=== PATIENT | male | born 1950 | race American Indian/Alaskan Native ===

== ENCOUNTER 2018-01-11 17:36 | Emergency (ER) | payer OTHER ==
[2018-01-11 18:02] VITALS: BP 151/95
--- NOTE | 2018-01-11 18:45 | XRAY Report ---
EXAM: LEFT ANKLE RADIOGRAPHY EXAM DATE: 01/11/2018 06:33 PM. CLINICAL HISTORY: Trauma. COMPARISON: None. TECHNIQUE: 3 views. FINDINGS: Bones: Normal. No fractures or bone lesions. Joints: Normal. No effusion. No subluxations. The ankle mortise is normally aligned. Soft Tissues: There is a moderate-sized plantar calcaneal spur. IMPRESSION: Negative for fracture and subluxation. [facility] Referring Provider Line: [phone] SITE ID: [id number]
--- NOTE | 2018-01-11 18:45 | XRAY Preliminary Report ---
Exam: XR ANKLE 3 VIEW LT IMPRESSION: Negative for fracture and subluxation. [facility] SITE ID: [id number]
--- NOTE | 2018-01-11 18:49 | ED Physician Documentation ---
PD HPI LOWER EXT INJURY - Stated complaint Stated Complaint: L ANKLE INJ - Chief complaint Chief Complaint: Ext Problem - History obtained from History obtained from: Patient - History of Present Illness PD HPI LOW EXT INJURY LOCATION: Left, Ankle Type of injury: Twist Where injury occurred: Home Timing - onset: How many hours ago (1) Worsened by: Moving, Palpating, Other (Weightbearing.) Associated symptoms: Swelling Similar symptoms before: Has not had sx before - Additional information Additional information: The patient is a 67-year-old male who slipped off the tailgate of a pickup twisting his left ankle about one hour prior to arrival. He complains of pain at the lateral aspect of his ankle, especially with weightbearing. He denies any other injuries. Review of Systems Cardiac: denies: Chest pain / pressure Respiratory: denies: Dyspnea GI: denies: Nausea, Vomiting Musculoskeletal: reports: Joint pain (left ankle) Neurologic: denies: Focal weakness, Numbness PD PAST MEDICAL HISTORY - Past Medical History Past Medical History: No Cardiovascular: Hypertension Respiratory: None Neuro: None Endocrine/Autoimmune: None GI: None : None HEENT: None Psych: None Musculoskeletal: None Derm: None - Past Surgical History Past Surgical History: No - Present Medications Home Medications: Ambulatory Orders Medication Instructions Recorded Confirmed No Known Home Medications [No 01/11/18 01/11/18 Known Home Medications] - Allergies Allergies/Adverse Reactions: Allergies Allergy/AdvReac Type Severity Reaction Status Date / Time No Known Drug Allergies Allergy Verified 01/11/18 18:02 - Social History Does the pt smoke?: No Smoking Status: Never smoker Does the pt drink ETOH?: No Does the pt have substance abuse?: No - Immunizations Immunizations are current?: Yes Immunizations: TDAP current <10years - POLST Patient has POLST: No PD ED PE NORMAL - Vitals Vital signs reviewed: Yes (Initially hypertensive.) - HEENT HEENT: Atraumatic - Respiratory Respiratory: No respiratory distress - Derm Derm: No rash - Extremities Extremities: No edema, No calf tenderness / cord, Other (There is soft tissue swelling and mild ecchymosis at the anterior aspect of the left lateral malleolus, with associated tenderness to palpation. There is no tenderness to palpation at the fifth metatarsal base, the medial malleolus, or the proximal fibula. Distal neurovascular is intact.) - Neuro Neuro: Alert and oriented X 3, No motor deficit, No sensory deficit Results - Vitals Vitals: Oxygen O2 Source Room air - Rads (name of study) ankle xray Radiology: Prelim report reviewed, EMP read contemporaneously, See rad report ( Negative for fracture or subluxation.) Procedures - Splint (location) left ankle Splint applied by: Tech Type of splint: Ankle airsplint Other: Patient tolerated well, No complications, Neurovascular intact, Crutches provided PD MEDICAL DECISION MAKING - ED course Complexity details: reviewed results, re-evaluated patient, considered differential, d/w patient, d/w family ED course: The patient's presentation is consistent with left ankle sprain. X-ray reveals no evidence of fracture or dislocation. Treatment in the emergency department included application of an ankle air splint. Crutches were dispensed. Ibuprofen 800 mg is administered orally. I discussed with the patient and his family the expected course of injury, symptomatic treatment and outpatient follow-up, as well as potentially worrisome signs or symptoms that should prompt reevaluation in the emergency department. Departure - Departure Disposition: 01 Home, Self Care Clinical Impression: Ankle sprain Qualifiers: Encounter type: initial encounter Involved ligament of ankle: anterior talofibular ligament Laterality: left Qualified Code(s): S93.492A - Sprain of other ligament of left ankle, initial encounter Condition: Stable Instructions: ED Sprain Ankle W X Ray Follow-Up: KATLIN Fitzgerald [Provider Group] Comments: Keep your left foot elevated as much of the time as possible. Apply ice pack intermittently for the next 3 days. Use the ankle air splint and crutches when ambulating. You can use ibuprofen or Aleve as needed for the anti-inflammatory effect. Follow up with your primary physician within 1-2 weeks. Call to schedule an appointment. Return to the emergency department if you develop markedly increasing swelling or pain, or otherwise worsening symptoms. Forms: Activity restrictions Discharge Date/Time: 01/11/18 19:07
[2018-01-11] MEDS ORDERED: IBUPROFEN 800 MG TABLET PO STA (18:55)
== END 2018-01-11 19:07 | disposition home or self-care (01) ==
LOC: ED 17:36
DX: S93.492A Sprain of other ligament of left ankle, initial encounter (principal); V58.4XXA Person boarding or alighting a pick-up truck or van injured in noncollision transport accident, initial encounter; Y93.E6 Activity, residential relocation; Y92.007 Garden or yard of unspecified non-institutional (private) residence as the place of occurrence of the external cause; X50.9XXA Other and unspecified overexertion or strenuous movements or postures, initial encounter; I10 Essential (primary) hypertension
CPT/HCPCS: 73610; 99283; A9270

== ENCOUNTER 2018-08-29 14:35 | Outpatient (CLI) | payer OTHER, MEDICARE ==
--- NOTE | 2018-08-30 13:56 | MRI Report ---
Reason: LUMBAR RADICULOPATHY Procedure Date: 08/29/2018 Accession Number: [id number] / [id number] Procedure: MRI - Lumbar Spine W/O CPT Code: FULL RESULT: EXAM: MRI LUMBAR SPINE WITHOUT CONTRAST EXAM DATE: 08/29/2018 03:16 PM. CLINICAL HISTORY: Lumbar radiculopathy. COMPARISON: None. TECHNIQUE: Multiplanar, multisequence T1-weighted and fluid-sensitive sequences of the lumbar spine from T12 to S1 without contrast. Other: None. FINDINGS: No suspicious marrow replacement is seen in the lumbar vertebral bodies. The distal tip of the conus medullaris is seen at the level of the L2 vertebral body. Minimal loss of vertebral body height along the super endplate of T12 from a degenerative Schmorl's node is noted. T11-T12: A minimal posterior disk protrusion is seen. T12 through L2: No posterior disk protrusion. L2-L3: A minimal posterior disk protrusion is seen. L3 through L5: No posterior disk protrusion. L5-S1: A mild posterior disk protrusion is seen. This is slightly greater towards the right. Facet/ligamentum flavum hypertrophy is seen in the lower lumbar spine. This is mild. IMPRESSION: 1. Minimal degenerative disk disease is seen at T11-T12 and L2-L3. Mild degenerative disk disease is seen at L5-S1. 2. No central canal or foraminal stenosis. Comment: The following findings are so common in adults without low back pain that while we report their presence, they must be interpreted with caution and in the context of the clinical situation. (Reference Chelseavik et al, Spine 2001) Prevalence of findings in patients without low back pain: Disk degeneration (any evidence): 92% Disk desiccation/T2 signal loss: 83% Disk height loss: 56% Disk bulge: 64% Disk protrusion: 32% Annular tear/high intensity zone: 38% [facility]
== END 2018-08-29 14:36 | disposition home or self-care (01) ==
LOC: DI 14:35
PROVIDERS: ATTEND Specialist
DX: M51.17 Intervertebral disc disorders with radiculopathy, lumbosacral region (principal); M51.34 Other intervertebral disc degeneration, thoracic region
CPT/HCPCS: 72148

== ENCOUNTER 2019-04-24 14:26 | Outpatient (CLI) | payer OTHER, MEDICARE ==
--- NOTE | 2019-04-24 19:16 | CARDIAC PROCEDURE NOTE ---
DATE OF SERVICE: 04/24/2019 Physician: Renetta White MD, [facility] INDICATIONS: Shortness of breath and fatigue. CARDIAC RISK FACTORS: Male gender, possibly untreated hypertension, unknown cholesterol status. PROCEDURE: After signing informed consent, the patient underwent a Vikash- protocol treadmill stress test. No imaging was ordered with this test. Resting heart rate: 61. Peak heart rate: 133 (87% predicted maximum heart rate for age). Resting blood pressure: 160/88. Peak blood pressure: 195/90. The patient exercised for 7 minutes and 16 seconds on a Vikash-protocol treadmill stress test. The patient achieved a peak heart rate of 133 (87% PMHR) and 9 METs. The patient developed shortness of breath in the final stage, and reported his perceived exertion at 16/20 on the Maeve scale and, for this reason, exercise was stopped. Oxygen saturation was measured at every stage and remained 95% to 97% throughout exercise and recovery, on room air. RESTING ELECTROCARDIOGRAM: Normal sinus rhythm, biphasic T-wave in lead III, otherwise within normal limits. ELECTROCARDIOGRAM AT PEAK: No new ST segment or T-wave abnormalities. SUMMARY 1. Good exercise tolerance. 2. No desaturation noted at a good level of exercise. 3. No ischemic changes by EKG criteria. This patient's cardiac risk is LOW. 4. Abnormally elevated blood pressure at rest and throughout the testing procedure. TD: 04/24/2019 15:45 MTDD
== END 2019-04-24 14:27 | disposition home or self-care (01) ==
LOC: DI 14:26
PROVIDERS: ATTEND Physician Assistant
DX: R06.02 Shortness of breath (principal); R53.83 Other fatigue
CPT/HCPCS: 93016; 93017; 93018

== ENCOUNTER 2020-04-22 07:56 | Outpatient (CLI) | payer MEDICARE, OTHER, BC | END 2020-04-22 07:57 | disposition home or self-care (01) | LOC: LAB 07:56 | PROVIDERS: ATTEND Family Medicine | DX: R53.81 Other malaise (principal); R42 Dizziness and giddiness; Z20.828 Contact with and (suspected) exposure to other viral communicable diseases | CPT/HCPCS: 81599 ==